=== PATIENT | male | born 1990 | race Caucasian/White ===

== ENCOUNTER 2019-03-10 09:59 | Emergency (ER) | payer MEDICAID ==
[~2019-03-10] VITALS: Ht 182.9 cm; Wt 99.0 kg
[2019-03-10 10:08] VITALS: BP 138/84
[2019-03-10 11:17] LABS: BASOPHILS % (AUTO) 0.3 % (0-1); EOSINOPHILS # (AUTO) 0.2 X10'3 (0-0.9); EOSINOPHILS % (AUTO) 1.3 % (0-6); HEMATOCRIT 42.4 % (42.0-52.0); HEMOGLOBIN 14.5 g/dl (14.0-17.9); LYMPHOCYTES # (AUTO) 1.1 X10'3 (1.1-4.8); LYMPHOCYTES % (AUTO) 9.1 % (21-51); MEAN CORPUSCULAR HEMOGLOBIN 30.8 PG (27.0-31.0); MEAN CORPUSCULAR HGB CONC 34.2 g/dL (33.0-36.5); MEAN CORPUSCULAR VOLUME 90.1 FL (78-98); MEAN PLATELET VOLUME 8.3 FL (7.4-10.4); MONOCYTES # (AUTO) 0.9 X10'3 (0-0.9); MONOCYTES % (AUTO) 7.2 % (2-12); NEUTROPHILS # (AUTO) 10.3 X10'3 (1.8-7.7); NEUTROPHILS % (AUTO) 82.1 % (42-75); PLATELET COUNT 225 X10'3 (140-440); RED BLOOD COUNT 4.71 X10'6 (4.70-6.10); RED CELL DISTRIBUTION WIDTH 13.5 % (11.5-14.5); WHITE BLOOD COUNT 12.6 X10'3 (4.5-11.0)
[2019-03-10 11:43] LABS: D-DIMER < 0.19 MG/L FEU (0-0.50)
[2019-03-10] MEDS ORDERED: AZIT250T83 PO (12:08)
[2019-03-10] MEDS ORDERED: IBUP-1984 PO (12:08)
== END 2019-03-10 12:24 | disposition home or self-care (01) ==
LOC: ER 10:00
DX: J40 Bronchitis, not specified as acute or chronic (principal); Z79.899 Other long term (current) drug therapy; M54.9 Dorsalgia, unspecified
CPT/HCPCS: 36415; 71046; 85025; 85379; 93005; 99284